=== PATIENT | male | born 1960 | race Caucasian/White ===

== ENCOUNTER 2017-04-22 19:47 | Emergency (ER) | payer OTHER ==
--- NOTE | 2017-04-22 20:52 | ED Physician Documentation ---
PD HPI LOWER EXT INJURY - Stated complaint Stated Complaint: puncture foot - Chief complaint Chief Complaint: Trauma Ext - History obtained from History obtained from: Patient - History of Present Illness PD HPI LOW EXT INJURY LOCATION: Left, Foot (near great toe MT head) Type of injury: Puncture wound (stepped on nail and says it did not go too far in. Has some bruising and redness in the area develop today.) Where injury occurred: Home Timing - onset: Yesterday Timing - details: Abrupt onset Worsened by: Moving, Palpating Associated symptoms: Swelling (mild), Discolored (slight purple to red color locally). No: Weakness, Numbness Similar symptoms before: Has not had sx before Recently seen: Not recently seen Review of Systems Constitutional: denies: Fever, Chills Neurologic: denies: Focal weakness, Numbness PD PAST MEDICAL HISTORY - Past Medical History Cardiovascular: None Respiratory: None Neuro: None Endocrine/Autoimmune: None - Present Medications Home Medications: Ambulatory Orders Medication Instructions Recorded Confirmed Tamsulosin [Flomax] 2 mg PO DAILY 07/20/16 04/22/17 Doxycycline Hyclate 100 mg PO BID #14 tablet 04/22/17 - Allergies Allergies/Adverse Reactions: Allergies Allergy/AdvReac Type Severity Reaction Status Date / Time No Known Drug Allergies Allergy Verified 04/22/17 20:02 PD ED PE NORMAL - Vitals Vital signs reviewed: Yes - General General: Alert and oriented X 3, Well developed/nourished - Derm Derm: Warm and dry. No: Normal color (some local purple/red color without warmth. ) - Extremities Extremities: Other (left foot MT head area for great toe with some local tenderness, no warmth. Some red/purple color. No drainage. Small point puncture wound. No bony tenderness. ) - Neuro Neuro: No motor deficit, No sensory deficit Results - Vitals Vitals: Vital Signs - 24 hr 04/22/17 04/22/17 20:03 21:44 Temperature 36.5 C Heart Rate 67 62 Respiratory 16 Rate Blood Pressure 114/72 116/73 O2 Saturation 98 97 Oxygen O2 Source Room air Departure - Departure Disposition: 01 Home, Self Care Clinical Impression: Puncture wound of plantar aspect of foot Qualifiers: Encounter type: initial encounter Laterality: left Qualified Code(s): S91.332A - Puncture wound without foreign body, left foot, initial encounter Condition: Stable Record reviewed to determine appropriate education?: Yes Instructions: ED Wound Puncture Foot Prescriptions: Doxycycline Hyclate 100 mg PO BID #14 tablet Comments: Warm soaks for the foot tonight and in the morning. This provides good blood flow to the area and helps promote drainage if it needs it. This likely is an inflammatory response and some bruising from the puncture wound. However could be early infection and if so will increase in redness and swelling a bit overnight. If so start doxycycline antibiotic. If it just stays locally dark colored with some bruising and swelling then to see how it does over few days. If your tetanus booster was with only 5 years ago then you are still good and do not need a booster at this point. Discharge Date/Time: 04/22/17 21:44
[2017-04-22 21:44] VITALS: BP 116/73
== END 2017-04-22 21:44 | disposition home or self-care (01) ==
LOC: ED 19:47
DX: S91.332A Puncture wound without foreign body, left foot, initial encounter (principal); W22.09XA Striking against other stationary object, initial encounter; Y92.009 Unspecified place in unspecified non-institutional (private) residence as the place of occurrence of the external cause
CPT/HCPCS: 99283

== ENCOUNTER 2018-04-12 22:58 | Emergency (ER) | payer OTHER ==
[2018-04-12] MEDS ORDERED: PROPARACAINE 0.5% OPHTH DROPS 15 ML RIGHTEYE STA (23:24)
[2018-04-12 23:25] VITALS: BP 134/79
--- NOTE | 2018-04-12 23:54 | ED Physician Documentation ---
PD HPI OPHTHO - Stated complaint Stated Complaint: R EYE IRRITATION - Chief complaint Chief Complaint: Heent - History obtained from History obtained from: Patient - History of Present Illness Timing - onset: Yesterday Timing - details: Gradual onset, Still present Location: Right Associated symptoms: Redness, Tearing, Discharge, Matting, FB sensation Contributing factors: Wears contacts Similar symptoms before: Has not had sx before Recently seen: Not recently seen - Additional information Additional information: Patient is a 57 year old male with no significant past medical history who is presenting to the emergency department for eye irritation. patient states that a few days ago he was doing some wood working and felt like he might have gotten something in his eye. Patient took his contacts out and rinsed out his eyes but today he started to develop worsening irritation, and discharge. Review of Systems Ten Systems: 10 systems reviewed and negative Eyes: reports: Discharge, Irritation PD PAST MEDICAL HISTORY - Past Medical History Past Medical History: Yes Cardiovascular: None Respiratory: None Endocrine/Autoimmune: None GI: None : Benign prostate hypertrophy HEENT: None Psych: None Musculoskeletal: None Derm: None - Past Surgical History Past Surgical History: No - Present Medications Home Medications: Ambulatory Orders Medication Instructions Recorded Confirmed Tamsulosin [Flomax] 5 mg PO DAILY 07/20/16 04/12/18 Ofloxacin 0.3% Ophth Drops 2 drops RIGHTEYE Q4H #1 btl 04/12/18 [Ocuflox 0.3% Ophth Drops] - Allergies Allergies/Adverse Reactions: Allergies Allergy/AdvReac Type Severity Reaction Status Date / Time No Known Drug Allergies Allergy Verified 04/12/18 23:06 - Social History Does the pt smoke?: No Smoking Status: Never smoker Does the pt drink ETOH?: No Does the pt have substance abuse?: No - Immunizations Immunizations are current?: Yes Immunizations: TDAP current <10years - POLST Patient has POLST: No PD ED PE NORMAL - Vitals Vital signs reviewed: Yes - General General: Alert and oriented X 3 - HEENT HEENT: Atraumatic - Cardiac Cardiac: RRR - Respiratory Respiratory: No respiratory distress - Derm Derm: Normal color, Warm and dry - Extremities Extremities: No deformity - Neuro Neuro: Alert and oriented X 3 PD ED PE EXPANDED - Eyes Eyes: Corneal abrasion (corneal abrasion approximately 7 oclock on right eye), Fluorescein uptake Results - Vitals Vitals: Vital Signs - 24 hr 04/12/18 23:00 Temperature 36.7 C Heart Rate 69 Respiratory 16 Rate Blood Pressure 134/79 H O2 Saturation 98 Oxygen O2 Source Room air PD MEDICAL DECISION MAKING - ED course Complexity details: reviewed old records, reviewed results, re-evaluated patient, considered differential, d/w patient ED course: Patient was seen and examined at bedside. patient's eye was viewed with fluorescein and corneal abrasion was present. patient was treated with ofloxacin. Patient required no further work up and was stable for discharge with outpatient follow up. - Sepsis Event Vital Signs: Vital Signs - 24 hr 04/12/18 23:00 Temperature 36.7 C Heart Rate 69 Respiratory 16 Rate Blood Pressure 134/79 H O2 Saturation 98 Oxygen O2 Source Room air Departure - Departure Disposition: 01 Home, Self Care Clinical Impression: Corneal abrasion Condition: Good Instructions: Corneal Injury Follow-Up: YASMANY JC [Primary Care Provider] - Within 3 Days Prescriptions: Ofloxacin 0.3% Ophth Drops [Ocuflox 0.3% Ophth Drops] 2 drops RIGHTEYE Q4H #1 btl Comments: Your symptoms are being caused by a corneal abrasion. You have been started on eye drops that you will need to take 6 times a day. you can take tylenol as needed for pain. You should not wear your contact lenses. You should follow up with your doctor if your symptoms persist. You may return to the emergency department at any time for new, worsening or uncontrollable symptoms. Discharge Date/Time: 04/12/18 23:59
[2018-04-13] MEDS ORDERED: OFLOXACIN 0.3% OPHTH DROPS RIGHTEYE SCH (01:00)
== END 2018-04-12 23:59 | disposition home or self-care (01) ==
LOC: ED 22:58
DX: S05.01XA Injury of conjunctiva and corneal abrasion without foreign body, right eye, initial encounter (principal); W22.8XXA Striking against or struck by other objects, initial encounter
CPT/HCPCS: 99283; J3490

== ENCOUNTER 2018-12-06 15:13 | Outpatient (CLI) | payer OTHER ==
--- NOTE | 2018-12-06 16:38 | MRI Report ---
Reason: CERVICALGIA,PARESTHESIA OF SKIN Procedure Date: 12/06/2018 Accession Number: [id number] / [id number] Procedure: MRI - Cervical Spine W/O CPT Code: FULL RESULT: EXAM: MRI CERVICAL SPINE WITHOUT CONTRAST EXAM DATE: 12/06/2018 03:58 PM. CLINICAL HISTORY: Cervicalgia, paresthesia of skin. Neck pain and bilateral arm numbness. Clinical history from prior study includes: Squamous cell carcinoma right tonsil. COMPARISONS: NECK SOFT TISSUE W/ 01/18/2016 7:47 AM. TECHNIQUE: Multiplanar, multisequence T1-weighted and fluid-sensitive sequences of the cervical spine without contrast. Other: None. FINDINGS: Neurologic Structures: The visualized posterior fossa structures are unremarkable. No signal abnormality in the visualized spinal cord. Alignment: The head is angled to the left. Consequent dextrocurvature of the cervical spine is noted. No spondylolisthesis. Bone Marrow: No gross fractures or bone lesions. No marrow edema. Interspace Levels/Facets: C1-C2: Unremarkable on sagittal series. C2-C3: Unremarkable. Minimal left-sided degenerative uncovertebral change. Mild left foraminal narrowing. No stenosis. C3-C4: Moderate broad-based dorsal subligamentous disk protrusion is seen. Anterior protrusion of disk/osteophyte complex is seen. Mild right-sided and moderate left-sided hypertrophic degenerative uncovertebral change is seen. Effacement and flattening of the thecal sac and spinal cord is noted with thinning of CSF. Marked canal stenosis. Effacement of exiting C4 nerve roots. Mild to moderate right foraminal stenosis. Marked left foraminal stenosis. C4-C5: Loss of disk space height is seen. Mild broad-based dorsal bulge of disk/osteophyte complex. Anterior protrusion of disk/osteophyte complex is seen. Hypertrophic degenerative uncovertebral changes noted bilaterally. Effacement of the thecal sac and spinal cord is noted with moderate canal stenosis. Effacement of exiting C5 nerve roots is seen. Moderate right foraminal stenosis. Marked left foraminal stenosis. C5-C6: Loss of disk space height is seen. Mild broad-based dorsal subligamentous disk protrusion is seen. Anterior protrusion of disk/osteophyte complex is seen. Degenerative uncovertebral change is noted bilaterally. Effacement of the thecal sac is seen with mild canal stenosis. Effacement of exiting C6 nerve roots is noted with marked bilateral foraminal stenosis. C6-C7: Mild dorsal subligamentous disk protrusion is seen. Anterior protrusion of disk/osteophyte complexes noted. Degenerative uncovertebral change is seen bilaterally. Effacement of the thecal sac is seen with mild canal stenosis. Effacement of exiting C7 nerve roots is noted. Moderate right foraminal stenosis. Mild left foraminal stenosis. C7-T1: Mild broad-based dorsal protrusion is noted. Mild ventral disk bulge. Mild degenerative uncovertebral change. Effacement of the ventral thecal sac is seen with mild canal narrowing. Effacement of exiting C8 nerve roots is seen bilaterally. Marked bilateral foraminal stenosis. Musculature: Normal. No edema or fatty atrophy. Other: The paravertebral and prevertebral soft tissues are normal. IMPRESSION: 1. Hypertrophic spondylosis with degenerative disk and uncovertebral change throughout the cervical spine. Multilevel stenosis is seen, including: -C3-C4: Marked canal stenosis. Right mild to moderate foraminal stenosis. Left marked foraminal stenosis. -C4-C5: Moderate canal stenosis. Right moderate foraminal stenosis. Left marked foraminal stenosis. -C5-C6: Mild canal stenosis. Bilateral marked foraminal stenosis. -C6-C7: Mild canal stenosis. Right moderate foraminal stenosis. Left mild foraminal stenosis. -C7-T1: Mild canal narrowing. Bilateral marked foraminal stenosis. 2. Flattening of the spinal cord is seen at the C3-C4 level. No intrinsic signal abnormality is appreciated. RAD[facility]
== END 2018-12-06 15:14 | disposition home or self-care (01) ==
LOC: DI 15:13
PROVIDERS: ATTEND Nurse Practitioner Family
DX: M50.21 Other cervical disc displacement, high cervical region (principal); M47.9 Spondylosis, unspecified; M48.02 Spinal stenosis, cervical region
CPT/HCPCS: 72141

== ENCOUNTER 2019-08-28 07:11 | Outpatient (CLI) | payer OTHER ==
[2019-08-28 07:49] LABS: CREATININE 1.7 mg/dL (0.6-1.2)
[2019-08-28] MEDS ORDERED: GADOBUTROL 7.5 MMOL/7.5 ML VIAL ONE (08:00)
[2019-08-28] MEDS ORDERED: GADOBUTROL 7.5 MMOL/7.5 ML VIAL IVP ONE (08:48)
--- NOTE | 2019-08-28 10:38 | MRI Report ---
Reason: SENSORINEURAL HEARING LOSS, TINNITUS, HEARING LOSS Procedure Date: 08/28/2019 Accession Number: [id number] / [id number] Procedure: MRI - IACS W/WO CPT Code: Final Report FULL RESULT: EXAM: MRI BRAIN AND INTERNAL AUDITORY CANAL (IAC),WITHOUT AND WITH CONTRAST. EXAM DATE: 08/28/2019 09:02 AM. CLINICAL HISTORY: Tinnitus and sensorineural hearing loss on the left for 4-5 months. COMPARISON: None. TECHNIQUE: Multiplanar, multisequence T1-weighted and fluid-sensitive MRI sequences of the brain and IACs were performed before and after administration of intravenous contrast. Other: None. IV Contrast: Without and with 7 mL Gadavist. FINDINGS: Brain Volume: Normal for age. Parenchyma/Dura: No acute hemorrhage, mass, or acute infarct.Normal-appearing white matter for age. No abnormal enhancement. Internal Auditory Canals (IACs): No abnormal enhancement, mass or nodule, no evidence for vestibular schwannoma. Unremarkable contours of the canalicular and a cisternal segments of the seventh and eighth cranial nerves. Imperceptible bony wall of the posterior aspect of the left semicircular canal, see for example images 42 and 43 of series 901. The posterior bony wall of the right superior semicircular canal appears very thin. Ventricles/Cisterns: No hydrocephalus. No abnormal extra-axial fluid collection or hemorrhage. Orbits: Symmetric and unremarkable. Sella Turcica: The pituitary gland, cavernous sinuses, suprasellar cistern and optic chiasm are unremarkable. Vasculature: Normal signal flow void is seen in the major arterial structures at the skull base. The dural sinuses are patent and enhance normally. Sinuses: No acute sinus disease. Bones: Upper cervical spine degenerative changes are present but incompletely characterized. There does appear to be central canal stenosis from posterior disk protrusion at the C3-C4 level. Other: None. IMPRESSION: 1. No MRI evidence of acute intracranial abnormality or enhancing mass. 2. No evidence for vestibular schwannoma. 3. Dehiscence of the posterior aspect of the left semicircular canal cannot be ruled out, this could be additionally evaluated as clinically warranted with temporal bone CT (without contrast). [facility]
== END 2019-08-28 07:12 | disposition home or self-care (01) ==
LOC: LAB 07:11
PROVIDERS: ATTEND Otolaryngology
DX: H90.5 Unspecified sensorineural hearing loss (principal); H93.13 Tinnitus, bilateral
CPT/HCPCS: 36415; 70543; 82565; 84520; A9585

== ENCOUNTER 2022-09-14 12:40 | Outpatient (CLI) | payer OTHER | END 2022-09-14 12:41 | disposition home or self-care (01) | LOC: LAB 12:40 | PROVIDERS: ATTEND Surgery | DX: Z01.812 Encounter for preprocedural laboratory examination (principal); K40.90 Unilateral inguinal hernia, without obstruction or gangrene, not specified as recurrent; Z28.310 Unvaccinated for COVID-19; Z20.822 Contact with and (suspected) exposure to COVID-19 ==

== ENCOUNTER 2022-09-15 08:04 | Day surgery (SDC) | payer OTHER ==
[2022-09-15] MEDS ORDERED: CEFAZOLIN 2G/50ML 0.9% NS 2 GM/50 ML BAG IV ONE (08:11)
[2022-09-15] MEDS ORDERED: LACTATED RINGERS 1,000 ML IV ONE (08:19)
[2022-09-15] MEDS ORDERED: LIDOCAINE-MPF 1% 30 ML VIAL ONE (09:22)
[2022-09-15] MEDS ORDERED: BUPIVACAINE 0.25% PF 30 ML VIAL ONE (09:23)
--- NOTE | 2022-09-15 09:30 | HISTORY & PHYSICAL EXAMINATION ---
Chief Complaint - Chief Complaint Chief Complaint: right groin bulge History of Present Illness - History Obtained From Records Reviewed: yes History obtained from: pt Exam Limitations: none - History of Present Illness HPI Comment/Other: right inguinal hernia. getting worse History - Past Medical History Cardiovascular: reports: None Respiratory: reports: None Endocrine/Autoimmune: reports: None GI: reports: GERD, Other : reports: Benign prostate hypertrophy, Other HEENT: reports: Chronic vision loss, Other Psych: reports: None Musculoskeletal: reports: None Derm: reports: Eczema MRSA Hx?: No - Past Surgical History General: reports: Colonoscopy HEENT: reports: Tonsil/Adenoidectomy - POLST Patient has POLST: No Meds/Allgy - Home Medications Home Medications: Ambulatory Orders Medication Instructions Recorded Confirmed Alfuzosin HCl [Alfuzosin HCl ER] 10 mg PO DAILY 08/26/22 08/26/22 Omeprazole 20 mg PO DAILY 08/26/22 08/26/22 - Allergies Allergies/Adverse Reactions: Allergies Allergy/AdvReac Type Severity Reaction Status Date / Time No Known Drug Allergies Allergy Verified 09/15/22 08:08 Review of Systems - Other Findings Other Findings: 10 pt ros as above otherwise unremarkable Exam - Vital Signs Reviewed Vital Signs: Yes Vital Signs: Vital Signs x48h Temp Pulse Resp BP Pulse Ox O2 Flow Rate 09/15/22 08:20 36.3 C L 81 18 139/96 H 98 0 - Physical Exam General Appearance: positive: No acute distress, Alert Eyes Bilateral: positive: PERRL, EOMI ENT: positive: No signs of dehydration Neck: positive: Nml inspection, Thyroid nml Respiratory: positive: No respiratory distress, Breath sounds nml Cardiovascular: positive: Regular rate & rhythm Abdomen: positive: Non-tender, No distention, Other (right inguinal hernia present) Neurologic/Psychiatric: positive: Oriented x3 Conclusion/Plan - Problem List (1) Inguinal hernia of right side without obstruction or gangrene Conclusion/Plan: plan open repair with mesh. parq held and consent obtained
[2022-09-15] MEDS ORDERED: LIDOCAINE-MPF 1% 30 ML VIAL SUBQ ONE (09:37)
[2022-09-15] MEDS ORDERED: BUPIVACAINE 0.25% PF 30 ML VIAL SUBQ ONE (09:37)
[2022-09-15] MEDS ORDERED: MIDAZOLAM 2 MG/2 ML VIAL ONE (09:39)
[2022-09-15] MEDS ORDERED: ACETAMINOPHEN 1,000 MG/100 ML 1,000 MG/100 ML BAG IV ONE (09:40)
[2022-09-15] MEDS ORDERED: fentaNYL 100 MCG/2 ML VIAL ONE (09:40)
[2022-09-15] MEDS ORDERED: PROPOFOL 500 MG/50 ML 500 MG/50 ML VIAL ONE (09:40)
[2022-09-15] MEDS ORDERED: PROPOFOL 200 MG/20 ML VIAL IVP ONE (09:41)
[2022-09-15] MEDS ORDERED: ONDANSETRON 4 MG/2 ML VIAL ONE (09:50)
[2022-09-15] MEDS ORDERED: METOCLOPRAMIDE 10 MG/2 ML VIAL IVP PRN (09:52)
[2022-09-15] MEDS ORDERED: MORPHINE 2 MG/ML CARPUJECT IVP PRN (09:52)
[2022-09-15] MEDS ORDERED: HYDROmorphone 0.5 MG/0.5 ML SYRINGE IVP PRN (09:52)
[2022-09-15] MEDS ORDERED: fentaNYL 100 MCG/2 ML VIAL IVP PRN (09:52)
[2022-09-15] MEDS ORDERED: ePHEDrine 50 MG/ML VIAL IVP PRN (09:52)
[2022-09-15] MEDS ORDERED: ONDANSETRON 4 MG/2 ML VIAL IVP PRN (09:52)
[2022-09-15] MEDS ORDERED: ATROPINE ABBOJECT 1 MG/10 ML SYRINGE IVP PRN (09:52)
[2022-09-15] MEDS ORDERED: NALOXONE 0.4 MG/ML VIAL IVP PRN (09:52)
--- NOTE | 2022-09-15 09:52 | ANESTHESIA ---
Pre-Anesthesia VS, & Labs - Diagnosis hernia - Procedure hernia repair Vital Signs: Temp Pulse Resp BP Pulse Ox O2 Flow Rate 36.3 C L 81 18 139/96 H 98 0 09/15/22 08:20 09/15/22 08:20 09/15/22 08:20 09/15/22 08:20 09/15/22 08:20 09/15/22 08:20 Height: 5 ft 10 in Weight (kg): 81.2 kg Body Mass Index: 25.7 BMI Classification: Overweight - NPO >8 hours Home Medications and Allergies Home Medications: Ambulatory Orders Alfuzosin HCl [Alfuzosin HCl ER] 10 mg PO DAILY 08/26/22 Omeprazole 20 mg PO DAILY 08/26/22 Alfuzosin HCl [Alfuzosin HCl ER] 10 mg PO DAILY 08/26/22 Omeprazole 20 mg PO DAILY 08/26/22 Allergies/Adverse Reactions: Allergies Allergy/AdvReac Type Severity Reaction Status Date / Time No Known Drug Allergies Allergy Verified 09/15/22 08:08 Anes History & Medical History - Anesthetic History Anesthesia Complications: reports: No previous complications Family history of Anesthesia Complications: Denies Family history of Malignant Hyperthermia: Denies - Medical History Cardiovascular: reports: None Pulmonary: reports: None Gastrointestinal: reports: GERD, Other Urinary: reports: Benign prostate hypertrophy, Other Musculoskeletal: reports: None Endocrine/Autoimmune: reports: None Blood Disorders: reports: None Skin: reports: Eczema Smoking Status: Never smoker History of Cancer?: Yes (tonsil CA) - Surgical History General: reports: Colonoscopy Eyes Ears Nose Throat (EENT): reports: Tonsil/Adenoidectomy Exam General: Alert, Oriented x3, Cooperative Dental: WNL Mouth Openin Fingerbreadth Neck Mobility: Normal Mallampati classification: I Thyromental Distance: 4-6 cm Respiratory: Lungs clear Cardiovascular: Regular rate Plan Anesthesia Type: General, Total IV Consent for Procedure(s) Verified and Reviewed: Yes Code Status: Attempt Resuscitation ASA classification: 2-Mild systemic disease Is this case an emergency?: No
[2022-09-15] MEDS ORDERED: LACTATED RINGERS 1,000 ML IV SCH (10:00)
[2022-09-15] MEDS ORDERED: ePHEDrine 50 MG/ML VIAL IVP ONE (10:30)
[2022-09-15] MEDS ORDERED: LACTATED RINGERS 200 ML IV ONE (11:45)
[2022-09-15] MEDS ORDERED: HYDROcod/ACETAM 5/325 MG TABLET PO PRN (12:00)
[2022-09-15 12:01] VITALS: BP 140/86
[2022-09-15] MEDS ORDERED: HYDROcod/ACETAM 5/325 MG TABLET ONE (12:12)
--- NOTE | 2022-09-15 12:19 | OPERATIVE REPORT ---
Operative Report - General Procedure Date: 09/15/22 Planned Procedure: open right inguinal hernia repair Pre-Op Diagnosis: right inguinal hernia Procedure Performed: open right inguinal hernia repair with mesh Post Op Diagnosis: indirect and direct inguinal hernia - Procedure Note Primary Surgeon: dina mason Anesthesia Technique: Local, MAC Pathology: none Estimated Blood Loss (mL): 2 Drain/Tube Type: Other (none) Indications: painful hernia bulge Findings: as above. iliohypogastric nerve was more medial and superficial distal than typical and was mobilized Complications: none - Other Other Information/Narrative: Patient was properly identified brought to the operating room and placed in supine position. Sequential compression devices were placed. Monitored anesthesia was given. He was prepped and draped in a sterile fashion and given preoperative antibiotics. Local anesthetic was given throughout the procedure. A 5 cm incision was made in the direction of Edy's lines just cephalad of the pubic tubercle. Dissection proceeded with cutting current cautery. The superficial epigastric vein was identified clamped divided and tied with 3-0 Vicryl. Dissection proceeded down to the aponeurosis. The aponeurosis was opened in the direction of its fibers and extended to the external ring. Cord structures were mobilized and brought up. The nerves were carefully protected and preserved. Cord structures were mobilized and brought up. An indirect inguinal hernia was present. The hernia sac was mobilized off the cord structures and suture ligated with 2 O silk and further reduced. Preperitoneal fat was removed. The base was tied with 2 O vicryl. Polypropylene mesh was cut to size and with tails. The mesh was secured with multiple interrupted 0 Ethibond sutures. She was placed along the pubic tubercle, Livan's ligament area and along the shelving border of Poupart's ligament. Sutures were placed medially along the abdominal wall musculature and internal oblique. The medial tail of the mesh was secured to the shelving border of Poupart's ligament with 3 interrupted 0 ethibond sutures recreating the internal ring of appropriate size. An additional suture was placed in the crotch of the mesh recreating an internal ring of appropriate size. Aponeurosis was closed with a running 2-0 Vicryl suture. The opposite was closed with interrupted 3-0 Vicryl suture. Buried interrupted subdermal 3-0 Vicryl sutures were then placed. And was closed with a running 4-0 Monocryl subcuticular suture. Dressing was applied. Patient was awakened and brought to recovery in good condition.
--- NOTE | 2022-09-15 17:48 | ANESTHESIA POST OP EVALUATION ---
Anesthesia Post Eval - Post Anesthesia Eval Vitals: Last Vital Signs Temp 36.3 C L 09/15/22 12:15 Pulse 70 09/15/22 12:15 Resp 16 09/15/22 12:15 BP 140/86 H 09/15/22 12:15 Pulse Ox 94 09/15/22 12:15 O2 Flow Rate 0 09/15/22 08:20 CV Function Including HR & BP: Stable Pain Control: Satisfactory Nausea & Vomiting: Negative Mental Status: Baseline Respiratory Status: Airway Patent Hydration Status: Satisfactory Anesthesia Complications: None
== END 2022-09-15 08:05 | disposition home or self-care (01) ==
LOC: SDS 08:04
PROVIDERS: ATTEND Surgery
DX: K40.90 Unilateral inguinal hernia, without obstruction or gangrene, not specified as recurrent (principal); N40.0 Benign prostatic hyperplasia without lower urinary tract symptoms
CPT/HCPCS: 49505; A9270; C1781; J0131; J0690; J7120

== ENCOUNTER 2023-09-20 10:09 | Outpatient (CLI) | payer MEDICARE, OTHER ==
[2023-09-20 10:23] LABS: BASOPHILS % (AUTO) 0.7 %; EOSINOPHILS # (AUTO) 0.1 10^3/uL (0.0-0.7); EOSINOPHILS % (AUTO) 2.4 %; HCT - HEMATOCRIT 49.7 % (42.0-52.0); HGB - HEMOGLOBIN 16.1 g/dL (14.0-18.0); LYMPHOCYTES # (AUTO) 1.2 10^3/uL (1.5-3.5); LYMPHOCYTES % (AUTO) 26.5 %; MEAN CORPUSCULAR HGB CONC 32.4 g/dL (32.0-36.0); MEAN CORPUSCULAR VOLUME 92.6 fL (80.0-94.0); MEAN PLATELET VOLUME 9.2 fL (7.4-11.4); MONOCYTES # (AUTO) 0.5 10^3/uL (0.0-1.0); NEUTROPHILS # (AUTO) 2.7 10^3/uL (1.5-6.6); NEUTROPHILS % (AUTO) 60.2 %; PLT - PLATELET COUNT 212 10^3/uL (130-450); RED BLOOD COUNT 5.37 10^6/uL (4.70-6.10); RED CELL DISTRIBUTION WIDTH 13.2 % (12.0-15.0); WHITE BLOOD COUNT 4.5 x10^3/uL (4.8-10.8)
[2023-09-20 10:42] LABS: ALBUMIN 4.6 g/dL (3.2-5.5); ALBUMIN/GLOBULIN RATIO 1.6 (1.0-2.2); ALKALINE PHOSPHATASE 69 IU/L (42-121); ALT ALANINE AMINOTRANSFERASE 24 IU/L (10-60); AST ASPARTATE AMINOTRANSFERASE 23 IU/L (10-42); BILIRUBIN,TOTAL 0.6 mg/dL (0.2-1.0); BUN - BLOOD UREA NITROGEN 20 mg/dL (6-20); CALCIUM 9.9 mg/dL (8.5-10.3); CARBON DIOXIDE - CO2 28 mmol/L (21-32); CHLORIDE 104 mmol/L (101-111); CHOL/HDL RATIO 4.5 (<5.0); CHOLESTEROL 207 mg/dL; CREATININE 1.5 mg/dL (0.6-1.3); GFR - MDRD 47 (>89); GLUCOSE 105 mg/dL (74-104); HDL CHOLESTEROL 46 mg/dL; LDL CHOLESTEROL,CALCULATED 131 mg/dL; LDL/HDL RATIO 2.8 (<3.6); POTASSIUM 4.8 mmol/L (3.5-4.5); SODIUM 137 mmol/L (135-145); TOTAL PROTEIN 7.4 g/dL (6.4-8.9); TRIGLYCERIDES 152 mg/dL (48-352); VLDL CHOLESTEROL 30 mg/dL
[2023-09-20 11:03] LABS: THYROID STIMULATING HORMONE 21.12 uIU/mL (0.34-5.60)
== END 2023-09-20 10:10 | disposition home or self-care (01) ==
LOC: LAB 10:09
PROVIDERS: ATTEND Nurse Practitioner Family
DX: N18.9 Chronic kidney disease, unspecified (principal); Z13.6 Encounter for screening for cardiovascular disorders; Z13.29 Encounter for screening for other suspected endocrine disorder
CPT/HCPCS: 36415; 80053; 80061; 83721; 84439; 84443; 85025

== ENCOUNTER 2023-10-12 07:37 | Emergency (ER) | payer MEDICARE, OTHER ==
--- NOTE | 2023-10-12 08:35 | ED Physician Documentation ---
PD HPI LOWER EXT INJURY - Stated complaint Stated Complaint: GLF,LT HIP PX - Chief complaint Chief Complaint: Trauma Ext - History obtained from History obtained from: Patient - Additional information Additional information: The patient comes to the emergency department chief complaint of left groin pain after a fall from a ladder. The patient states he was standing at about 6 feet off the ground when the ladder he was on began to slide. He states that he fell all the way to the ground and that he Impacted just to the left of his sacrum in a sitting position on the rail of the ladder when he hit the ground. He states that the ground itself was concrete, but he did not feel like he really hit the concrete much because of landing on the ladder itself. The patient states this happened yesterday afternoon and that all day, he had a deep ache in his left inguinal area. He states that he was unable to bear weight and had to use crutches. He also states if he straightens out it hurts a lot. He states that today, he does not feel any pain at all if he is just resting or sitting or laying with his hip slightly bent, but if he tries to straighten up or bear weight, it still hurts a lot. No numbness or tingling in his lower extremities that is new. No injuries anywhere else. No abdominal pain. No blood in his urine. No back pain. No other complaints at this time. PD PAST MEDICAL HISTORY - Past Medical History Past Medical History: Yes Cardiovascular: None Respiratory: None Endocrine/Autoimmune: None GI: GERD, Other : Benign prostate hypertrophy, Other HEENT: Chronic vision loss, Other Psych: None Musculoskeletal: None Derm: Eczema - Past Surgical History Past Surgical History: Yes General: Colonoscopy HEENT: Tonsil/Adenoidectomy - Present Medications Home Medications: Ambulatory Orders Medication Instructions Recorded Confirmed Alfuzosin HCl [Alfuzosin HCl ER] 10 mg PO DAILY 08/26/22 10/12/23 Omeprazole 20 mg PO DAILY 08/26/22 10/12/23 HYDROcod/ACETAM 5/325 [Paramus 5/325] 1 - 2 tablet PO Q6H PRN #20 tablet 10/12/23 - Allergies Allergies/Adverse Reactions: Allergies Allergy/AdvReac Type Severity Reaction Status Date / Time No Known Drug Allergies Allergy Verified 10/12/23 07:53 - Social History Does the pt smoke?: No Smoking Status: Never smoker Does the pt drink ETOH?: No Does the pt have substance abuse?: No - Immunizations Immunizations are current?: Yes Immunizations: TDAP current <10years - POLST Patient has POLST: No PD ED PE NORMAL - Vitals Vital signs reviewed: Yes - General General: Alert and oriented X 3, No acute distress, Well developed/nourished - HEENT HEENT: Atraumatic, PERRL, EOMI, Moist mucous membranes - Neck Neck: Supple, no meningeal sign - Cardiac Cardiac: Strong equal pulses - Respiratory Respiratory: No respiratory distress - Abdomen Abdomen: Soft, Non tender, Non distended - Derm Derm: Normal color, Warm and dry, No rash - Extremities Extremities: No deformity, No tenderness to palpate (No tenderness to palpation over inguinal ligament, hips, any palpable portion of the pelvis. No pain with AP or mediolateral compression of the pelvis.), No edema, Other (No shortening or rotation.) - Neuro Neuro: Alert and oriented X 3, No motor deficit, No sensory deficit, Other (Otherwise grossly intact) - Psych Psych: Normal mood, Normal affect Results - Vitals Vitals: Oxygen O2 Source Room air - Rads (name of study) XR L hip/pelvis Relevant Findings:: Final report received, See rad report (L pubic ring fx) CT L hip/pelvis Relevant Findings:: Final report received, See rad report (L pelvic ring fx) PD Medical Decision Making - ED course Complexity details: reviewed results, re-evaluated patient, considered differential, d/w patient ED course: Patient was initially worked up with left hip and pelvis x-ray series, followed by a CT of the L hip/pelvis, which showed a stable pelvic ring fx. We discussed symptomatic management at home, as well as the usual indications for return. Departure - Departure Disposition: 01 Home, Self Care Clinical Impression: Closed pelvic ring fracture Qualifiers: Encounter type: initial encounter Qualified Code(s): S32.810A - Multiple fractures of pelvis with stable disruption of pelvic ring, initial encounter for closed fracture Condition: Stable Instructions: ED Fx Pelvis Follow-Up: Rashad Johnson MD [Provider Admit Priv/Credential] - Prescriptions: HYDROcod/ACETAM 5/325 [Paramus 5/325] 1 - 2 tablet PO Q6H PRN #20 tablet PRN Reason: Pain Comments: Your CT scan shows a fracture of your left pelvic ring. This is a stable fracture which will ultimately heal on its own and does not require surgery. You will most likely have some degree of pain over the next several weeks, but the worst will be the next week or 2. After this, your pain will start to subside. You may take the pain medication prescribed as needed. Use crutches as needed as well, though you may begin bearing weight once you feel comfortable enough to do so. You may follow-up with our orthopedic clinic and information has been provided for this. The prescription for your pain medication has been electronically transmitted to the [facility] pharmacy in [place], your pharmacy of choice on record. Please pick it up today and begin taking the medicine as needed. Forms: PCP List Discharge Date/Time: 10/12/23 10:48
--- NOTE | 2023-10-12 08:36 | XRAY Report ---
PROCEDURE: Hip w/Pelvis 2-3V LT INDICATIONS: fall from ladder, L hip pain TECHNIQUE: 2 views of the hip were acquired. COMPARISON: None. FINDINGS: Bones: Suspected fracture of the left pubic ring. Soft tissues: No suspicious soft tissue calcifications or masses. IMPRESSION: Suspected fracture of the left pubic ring. Reviewed by: iMr Cohen MD on 10/12/2023 8:35 AM PDT Approved by: Mir Cohen MD on 10/12/2023 8:35 AM PDT Station ID: [id number]
--- NOTE | 2023-10-12 10:19 | CT Report ---
PROCEDURE: Pelvis WO INDICATIONS: pain after fall from ladder, can't bear wt TECHNIQUE: Noncontrast 3 mm axial sections acquired through the bony pelvis, with coronal and sagittal reformatt ing. For radiation dose reduction, the following was used: automated exposure control, adjustment of mA and/or kV according to patient size. COMPARISON: None. FINDINGS: Image quality: Excellent. Bones: Comminuted, minimally displaced fracture of the left superior pubic ramus and inferior pubic ramus. Soft tissues: No extra pelvic hematoma. Visualized bowel, bladder are unremarkable. Prostatomegaly. IMPRESSION: Minimally displaced fracture of the left pelvic ring. Reviewed by: Mir Cohen MD on 10/12/2023 10:18 AM PDT Approved by: Mir Cohen MD on 10/12/2023 10:18 AM PDT Station ID: [id number]
[2023-10-12 10:22] VITALS: O2SAT 99
[2023-10-12 10:51] VITALS: BP 138/70
== END 2023-10-12 10:48 | disposition home or self-care (01) ==
LOC: ED 07:37
DX: S32.810A Multiple fractures of pelvis with stable disruption of pelvic ring, initial encounter for closed fracture (principal); W11.XXXA Fall on and from ladder, initial encounter
CPT/HCPCS: 99284